=== PATIENT | male | born 1975 | race Caucasian/White ===

== ENCOUNTER → 2018-07-17 11:06 | Emergency (ER) | payer OTHER ==
[~2018-07-17 11:06] MED LIST: DOXYcycline CAP(*) 100 MG PO ONE; Iohexol 300* (CONTRAST) 10 ML SDV IV ONE; Ketorolac INJ* 30 MG/ML 1 ML VIAL IV PUSH ONE
--- NOTE | 2018-07-17 11:58 | ED ---
Abdominal Pain/Male - HPI Summary HPI Summary: Patient is a 42 y/o M w/ c/o LLQ pain with onset yesterday morning at around 0500. Testicular pain is also reported. Patient denies dysuria, penile discharge , abnormal bowel movements, N/V/D, recent trauma, fever. He was seen at [facility] and sent to [facility] for further workup. He reports radiation of pain to suprapubic area. He notes that he thought he was having gas buildup but pain has not resolved since onset. Pain is described as a pressure but sharp when he takes deep breaths and with palpation. He reports Hx of similar pain but also notes that these episodes typically resolve by themselves. PMHx of diverticulitis, asthma, HTN, diabetes, thyroid problems, kidney stones are denied. Prior colonoscopy is denied. PMHx of migraines is endorsed. PSHx of gastric sleeve, cholecystectomy, appendectomy, tonsillectomy, and x3 knee surgery. Alcohol and drug usage is denied, patient smokes cigarettes. FHx of multiple myeloma in mother, father had diverticulitis. On triage, pain is rated 4/10, nothing is noted to aggravate/alleviate Sx. Home medications and allergies are reviewed. Allergies/Adverse Reactions: Allergies Allergy/AdvReac Type Severity Reaction Status Date / Time Sulfa (Sulfonamide Allergy Hives Verified 07/17/18 11:11 Antibiotics) - History of Current Complaint Chief Complaint: EDAbdPain Stated Complaint: ABD PAIN Time Seen by Provider: 07/17/18 11:34 Hx Obtained From: Patient Onset/Duration: Gradual Onset, Lasting Days - onset 0500 yesterday, Still Present Timing: Constant, Lasting Days - onset yesterday 0500 Severity Initially: Moderate Severity Currently: Moderate - 4/10 Pain Intensity: 4 Pain Scale Used: 0-10 Numeric - 4/10 Location: Discrete At: LLQ Radiates: Yes Radiates to: Other - suprapubic area Character: Sharp - with deep breaths and palpation, Other: - pressure Aggravating Factor(s): Deep Breaths, Other: - palpation Alleviating Factor(s): Nothing Associated Signs And Symptoms: Positive: Negative - Allergies/Home Medications Allergies/Adverse Reactions: Allergies Allergy/AdvReac Type Severity Reaction Status Date / Time Sulfa (Sulfonamide Allergy Hives Verified 10/12/18 11:11 Antibiotics) PMH/Surg Hx/FS Hx/Imm Hx Previously Healthy: No Endocrine/Hematology History: Denies: Hx Diabetes Cardiovascular History: Denies: Hx Congestive Heart Failure, Hx Hypertension Respiratory History: Reports: Hx Asthma - A CHILD, Hx Seasonal Allergies GI History: Reports: Other GI Disorders - NEGATIVE: diverticulosis History: Denies: Hx Kidney Stones, Hx Renal Disease Musculoskeletal History: Reports: Other Musculoskeletal History - 3 right knee surgeries Sensory History: Reports: Hx Contacts or Glasses - glasses, slight stigmatism to left eye Denies: Hx Hearing Aid Opthamlomology History: Reports: Hx Contacts or Glasses - glasses, slight stigmatism to left eye Neurological History: Reports: Hx Migraine Psychiatric History: Reports: Hx Depression - IN THE PAST - Surgical History Surgery Procedure, Year, and Place: Gastric sleeve 2014. Tonsillectomy- A CHILD. 3 KNEE SURGERIES- RIGHT-[facility]. endoscopy- pre op for weight loss surgery 06/2015. liver biopsy. appendectomy. cholecystectomy Hx Anesthesia Reactions: No Infectious Disease History: No Infectious Disease History: Reports: Hx Hepatitis - Hepatitis C-TREATED FOR-2013 Denies: Traveled Outside the [place] in Last 30 Days - Family History Known Family History: Positive: Hypertension, Diabetes, Other - father with diverticulitis, mother with multiple myeloma - Social History Occupation: Student - engineering student at [employer] Alcohol Use: None Hx Substance Use: No Substance Use Type: Reports: None Hx Tobacco Use: Yes Smoking Status (MU): Light Every Day Tobacco Smoker Amount Used/How Often: 1 pk every 3 days Have You Smoked in the Last Year: Yes Review of Systems Positive: Other - NEGATIVE: recent trauma . Negative: Fever Cardiovascular: Negative Respiratory: Negative Positive: Abdominal Pain - LLQ with radiation to suprapubic area , Other - NEGATIVE: abnormal bowel movements. Negative: Vomiting, Diarrhea, Nausea Positive: pain - bilateral testicular pain. Negative: dysuria, discharge - penile Musculoskeletal: Negative Skin: Negative Neurological: Negative Psychological: Normal All Other Systems Reviewed And Are Negative: Yes Physical Exam - Summary Physical Exam Summary: Appearance: Well-appearing, moderate pain distress, well-nourished Skin: Warm, color reflects adequate perfusion, dry Head: Normal Head/Face inspection, atraumatic Eyes: Conjunctiva clear ENT: Normal inspection Neck: Supple, no nodes, no JVD Respiratory: Lungs clear, normal breath sounds, no respiratory distress Cardio: RRR, No murmur, pulses normal, brisk capillary refill Abdomen: Soft, tenderness LLQ, no CVA tenderness, no masses, non-distended, no guarding, no rebound with alexandra Baum, present: circumcised male, testes descended bilat , nontender, no masses, no swelling. Bowel sounds: Present Musculoskeletal: Strength Intact/ROM intact, no calf tenderness, no edema. Psychological: Normal Neuro: Alert, muscle tone normal, no focal deficit Triage Information Reviewed: Yes Vital Signs On Initial Exam: Initial Vitals Temp Pulse Resp BP Pulse Ox 97.8 F 76 18 128/73 99 07/17/18 11:07 07/17/18 11:07 07/17/18 11:07 07/17/18 11:07 07/17/18 11:07 Vital Signs Reviewed: Yes Diagnostics - Vital Signs Vital Signs Temp Pulse Resp BP Pulse Ox 07/17/18 11:07 97.8 F 76 18 128/73 99 - Laboratory Result Diagrams: 07/17/18 11:39 07/17/18 11:39 Lab Statement: Any lab studies that have been ordered have been reviewed, and results considered in the medical decision making process. - Radiology CXR Xray Interpretation: No Acute Changes Radiology Interpretation Completed By: Radiologist - no active cardiopulmonary disease is noted; this report was reviewed by ed physician - CT abd/pel CT CT Interpretation: Positive (See Comments) CT Interpretation Completed By: Radiologist - IMPRESSION: No pelvic masses or fluid collections are noted. There is close to the inguinal canal on the left focal thickening and infiltration of fat surrounding the left vas deferens. The possibility of vasitis should BE considered. Diverticulitis is considered less likely. This report was reviewed by ed physician. - Ultrasound No standard instances Ultrasound Interpretation: Positive (See Comments) Ultrasound Interpretation Completed By: Radiologist - TESTICULAR US IMPRESSIONS : Small to moderate hydroceles bilaterally. No intratesticular masses are noted. Doppler interrogation demonstrates normal flow in both testes. This report was reviewed by ed physician. - EKG 1209 Cardiac Rate: NL - rate of 62 bpm EKG Rhythm: Sinus Rhythm ST Segment: Non-Specific Ectopy: None EKG Interpretation: reveals nml AV/IV CT, nml QTc, and nml axis Re-Evaluation - Re-Evaluation First Eval Re-Evaluation Time: 15:10 Change: Improved Comment: Results of labs and tests were discussed. Dr. Claudio's recommendation was discussed, patient is agreeable with the plan of follow up treatment. He will be discharged to home. Abdominal Pain Fem Course/Dx - Course Course Of Treatment: Patient is a 42 y/o M w/ c/o LLQ pain onsetting yesterday morning at around 0500. Testicular pain is also reported. Patient denies dysuria , penile discharge, abnormal bowel movements, N/V/D, recent trauma, fever. He was seen at [facility] and sent to [facility] for further workup. He reports radiation of pain to suprapubic area. Pain is described as a pressure but sharp when he takes deep breaths and with palpation. He reports Hx of similar pain but also notes that these episodes typically resolve by themselves. PMHx of diverticulitis, asthma, HTN, diabetes, thyroid problems, kidney stones are denied. Colonoscopy is denied. PMHx of migraines is endorsed. PSHx of gastric sleeve, cholecystectomy, appendectomy, tonsillectomy, and x3 knee surgery. Alcohol and drug usage is denied, patient smokes cigarettes. Physical exam showed that abdomen is soft, tenderness LLQ, no CVA tenderness, no masses, non-distended, no guarding, no rebound. Testicular exam with cytometry technologist is benign and nontender. Patient in moderate pain distress. During ED course, patient was given vibramycin 100 mg PO ONCE and toradol 30 mg IV PUSH ED ONCE. CXR was negative, testicular US revealed small to moderate hydroceles bilaterally. No intratesticular masses are noted. Doppler interrogation demonstrates normal flow in both testes. EKG shows sinus rhythm with rate of 62 bpm, non-specific ST, no ectopy, and nml AV/IV CT, nml QTc, and nml axis. Labs showed lipase <10, amylase 20, CRP 14.39, lactic 0.6, trop 0, AST 13, ALT 12, and alk phos 57, WBC 10.5. UA was negative. CT abd/pel showed no pelvic masses or fluid collections are noted. There is close to the inguinal canal on the left focal thickening and infiltration of fat surrounding the left vas deferens. The possibility of vasitis should BE considered. Diverticulitis is considered less likely. Patient's case was discussed with Dr. Claudio [place] 1502. Dr. Claudio recommends treatment with doxycycline, 100 mg BID x 10 days, ibuprofen 600 TID (not prn) x 5 days and to follow up with González in his office in three days. Patient was discharged to home w/ Dx of vasitis and testicular pain. - Diagnoses Differential Diagnosis/HQI/PQRI: Abdominal Aortic Aneurysm, Bowel Obstruction, Constipation, Diverticulitis, Ischemic Bowel, Pancreatitis, Renal Colic, Testicular Torsion, Ureteral Stone, Urinary Tract Infection Provider Diagnoses: Vasitis, Testicular pain, LLQ abdominal pain - Provider Notifications Discussed Care Of Patient With: Temo Claudio Time Discussed With Above Provider: 15:02 Instructed by Provider To: Other - Patient's case was discussed with Dr. Claudio at 1502. Dr. Claudio recommends treatment with doxacycline, 100 mg BID x 10 days, ibuprofen 600 TID x 5 days and to follow up with González in his office in three days. Discharge - Sign-Out/Discharge Documenting (check all that apply): Patient Departure - discharge - Discharge Plan Condition: Stable Disposition: HOME Prescriptions: DOXYcycline CAP(*) [DOXYcycline 100MG CAP(*)] 100 mg PO BID #20 cap Ibuprofen TAB* [Motrin TAB* 600 MG] 600 mg PO Q8H #15 tab Patient Education Materials: Epididymitis (ED), Acute Abdominal Pain (ED) Referrals: [facility] [Outside] - 3 Days Temo Claudio MD [Medical Doctor] - 3 Days (Have definite follow up on Friday with Dr. Claudio ) Additional Instructions: We have given you a copy of the studies that were done on you today. We have also spoken to Dr. Claudio, the urologist about you. He recommends that we treat the vasitis like epididymitis. He wants to see you definitely on Friday07/20/18. Take the doxycycline 100mg twice a day for 10 days, and take ibuprofen 600mg three times a day with food for 5 days. Take the ibuprofen around the clock to reduce inflammation, not just as needed for pain or fever. See Dr. Claudio on Friday07/20/18 for sure. Return to the ER if you have new or worsening symptoms. - Billing Disposition and Condition Condition: STABLE Disposition: Home - Attestation Statements Document Initiated by Scribe: Yes Documenting Scribe: Luis Felipe Heard Provider For Whom Scribe is Documenting (Include Credential): Hermelinda Jordan MD Scribe Attestation: Luis Felipe Raymundo , scribed for Hermelinda Jordan MD on 07/20/18 at 2216. Scribe Documentation Reviewed: Yes Provider Attestation: The documentation as recorded by the Luis Felipe cordova accurately reflects the service I personally performed and the decisions made by me, Hermelinda Jordan MD
[2018-07-17 12:00] LABS: ABS Basophils 0 10^3/ul (0-0.2); ABS Eosinophils 0 10^3/ul (0-0.6); ABS Lymphocytes 1.5 10^3/ul (1.0-4.8); ABS Monocytes 0.6 10^3/ul (0-0.8); ABS Neutrophils 8.4 10^3/ul (1.5-7.7); ABS Nucleated RBC 0 10^3/ul; Eosinophil % 0.1 % (0-6); Hematocrit 44 % (42-52); Hemoglobin 15.4 g/dl (14.0-18.0); Mean Corpuscular HGB Conc 35 g/dl (31-36); Mean Corpuscular Hemoglobin 30 pg (27-31); Mean Corpuscular Volume 88 fL (80-94); Mean Platelet Volume 8.9 um3 (7.4-10.4); Nucleated Red Blood Cells % 0.1; Platelet Count 172 10^3/ul (150-450); Red Blood Count 5.07 10^6/ul (4.00-5.40); Red Cell Distribution Width 13 % (10.5-15); White Blood Count 10.5 10^3/ul (3.5-10.8)
[2018-07-17 12:01] LABS: Urine Appearance Clear; Urine Blood Negative (Negative); Urine Color Yellow; Urine Ketones Negative (Negative); Urine Protein Negative (Negative); Urine Specific Gravity 1.023 (1.010-1.030); Urine Urobilinogen Negative (Negative)
--- NOTE | 2018-07-17 12:10 | RAD ---
Indication: Abdominal pain. Single frontal view of the chest performed at 1149 hours was reviewed. No prior study is available.. No mediastinal shift is noted. Heart is of normal size and configuration. Lung leslie appear clear. IMPRESSION: NO ACTIVE CARDIOPULMONARY DISEASE IS NOTED.
[2018-07-17 12:24] LABS: EGFR Non-African American 108.6 (>60)
--- NOTE | 2018-07-17 12:28 | RAD ---
Indication: Bilateral scrotal pain. Real-time sonography of the scrotum was performed. The right testis measures 4.5 x 2.1 x 3.6 cm. No intratesticular masses are noted. Normal flow is noted in the right testis. The epididymis measures 0.9 x 1.1 cm. Small right hydrocele is noted. Epididymal cyst is noted in the head. The left testis measures 4.2 x 2.0 x 3.1 cm. No intratesticular masses are noted. Normal flow is noted in the left testis. The epididymis measures 0.9 x 1.5 cm. Small hydrocele is noted. IMPRESSION: Small to moderate hydroceles bilaterally. No intratesticular masses are noted. Doppler interrogation demonstrates normal flow in both testes.
--- NOTE | 2018-07-17 14:37 | RAD ---
Indication: Left upper quadrant pain, left lower quadrant pain, testicular pain. Contrast: Administered 117.1 ml of OMNIPAQUE 300 mg/ml CT of the abdomen and pelvis was performed without oral or IV contrast administration. Coronal and sagittal reconstructed images were obtained. Lung bases demonstrate no pleural fluid, nodules or masses. Heart is normal size without evidence of pericardial effusion. Liver is normal in size. No focal lesions or intrahepatic ductal dilatation is noted. The spleen is normal in size. Common duct is not dilated. The gallbladder has been surgically resected. The pancreas demonstrates no mass or pancreatic duct dilatation. No adrenal lesions are noted. The kidneys demonstrate no hydronephrosis in either kidney. No retroperitoneal lymphadenopathy is noted. CT of the pelvis demonstrates no retroperitoneal or pelvic lymphadenopathy. There is inflammatory changes close to the left inguinal canal. This is just adjacent to the colon. No focal wall thickening of the colon is noted. This may represent vasitis rather than diverticulitis. This is most prominent in the left inguinal canal region. IMPRESSION: No pelvic masses or fluid collections are noted. There is close to the inguinal canal on the left focal thickening and infiltration of fat surrounding the left vas deferens. The possibility of vasitis should BE considered. Diverticulitis is considered less likely.
[2018-07-17 15:48] VITALS: BP 123/75
== END | disposition home or self-care (01) ==
LOC: ED 11:06
DX: N49.1 Inflammatory disorders of spermatic cord, tunica vaginalis and vas deferens (principal); N50.812 Left testicular pain; N50.811 Right testicular pain; R10.32 Left lower quadrant pain; Z88.2 Allergy status to sulfonamides; Z98.84 Bariatric surgery status; F17.210 Nicotine dependence, cigarettes, uncomplicated
CPT/HCPCS: 36415; 71045; 74177; 76870; 80053; 81003; 82150; 82550; 83605; 83690; 84484; 85025; 85730; 86140; 93005; 96374; 99282; A9270-GY; J1885; Q9967